=== PATIENT | female | born 1975 ===

== ENCOUNTER 2018-09-17 10:13 | Day surgery (SDC) | payer SELFPAY ==
[2018-09-16 15:02] VITALS: BMI 32.4
[2018-09-17] MEDS ORDERED: EPINEPHrine/PF 1 MG/1 ML (1:1,000) AMPULE ONE (13:26)
[2018-09-17] MEDS ORDERED: LIDOCAINE HCL 2% (20ML MULTI-DOSE VIAL) NR ONE (13:27)
[2018-09-17] MEDS ORDERED: SODIUM BICARBONATE 8.4% - 50 ML ONE (13:30)
[2018-09-17] MEDS ORDERED: MIDAZOLAM HCL 2 MG/2 ML SINGLE DOSE VIAL ONE (13:49)
[2018-09-17] MEDS ORDERED: PROPOFOL 20 ML ONE ×2 (13:53→16:07)
[2018-09-17] MEDS ORDERED: fentaNYL CITRATE 250 MCG/5 ML VIAL ONE (13:53)
[2018-09-17] MEDS ORDERED: ROCURONIUM BROMIDE 50 MG/5 ML VIAL ONE (13:54)
[2018-09-17] MEDS ORDERED: DEXAMETHASONE SOD PHOSPHATE 4 MG/1 ML VIAL ONE (14:02)
[2018-09-17] MEDS ORDERED: BUPIVACAINE HCL/PF 0.25% (2.5MG/ML) 10 ML VIAL ONE (14:07)
[2018-09-17] MEDS ORDERED: ceFAZolin SODIUM 1 GM VIAL IVPB ONE (14:10)
[2018-09-17] MEDS ORDERED: ONDANSETRON 4 MG/2 ML VIAL IVPUSH PRN (17:17)
[2018-09-17] MEDS ORDERED: ACETAMINOPHEN 325 MG TABLET (FP) PO PRN (17:17)
[2018-09-17] MEDS: MEPERIDINE HCL CARPU-JECT 25 MG/1 ML DISP.SYRIN IVPUSH PRN ×2 (17:30→17:40)
[2018-09-17] MEDS ORDERED: LACTATED RINGERS SOLUTION 1,000 ML IV SCH (17:30)
[2018-09-17] MEDS ORDERED: ONDANSETRON 4 MG/2 ML VIAL ONE (18:02)
[2018-09-17] MEDS ORDERED: ACETAMINOPHEN INJECTION 100 ML IVPB ONE (18:13)
[2018-09-17] MEDS ORDERED: ACETAMINOPHEN 1000 MG/100 ML VIAL (NON FORMULARY) IVPB ONE (18:15)
[2018-09-17 19:43] VITALS: BP 112/76; PULSE 77; TEMP 97.9
--- NOTE | 2018-09-20 17:35 | OP ---
DATE OF OPERATION: 09/17/2018 PREOPERATIVE DIAGNOSES: 1. Lipodystrophy of abdomen, flanks, and bilateral buttocks. 2. 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 POSTOPERATIVE DIAGNOSES: 1. Revision of umbilical and lower abdominal scars. 2. Power-assisted liposuction of abdomen, bilateral flanks, and back, with autologous fat transfer to bilateral buttocks. ATTENDING SURGEON: Markel Hernandez MD ANESTHESIA: General endotracheal. ESTIMATED BLOOD LOSS: 20 mL. SPECIMEN: None. DRAINS: None. COMPLICATIONS: None. CONDITION: Stable to recovery room, extubated. INDICATIONS: The patient is a 42-year-old female who underwent an abdominoplasty in the [facility] in 2017. She now presents with hypertrophic scarring of her umbilicus as well as her lower abdomen, with areas of tethered scar consistent with secondary healing. In addition, the patient has lipodystrophy of her abdomen, flanks, and back and desires correction of lipodystrophy of her bilateral buttocks, with a lateral depression deformity. The risks, benefits, and alternatives of the surgery were discussed with the patient in detail, with the aid of a supervisor steel division, and all questions were answered. The risks include but are not limited to bleeding; infection; pain; need for revision or further surgery; recurrence of hypertrophic scarring; damage to neighboring structures including nerves, arteries, veins, and tendons; residual lipodystrophy and/or buttock deformity. The patient understands these risks and has elected to proceed with surgery. PROCEDURE: After proper identification and marking the patient in the preoperative holding area, the patient was transported to the operating room, placed supine on the table, and noninvasive anesthesia monitors were applied. Intravenous access was established. General anesthesia was administered and the patient was intubated without difficulty. SCD boots were applied to bilateral lower extremities. Intravenous antibiotics were then given. The patient's abdomen as well as bilateral flanks were then prepped and draped in the usual sterile fashion. After a timeout was performed, local anesthesia consisting of a solution of 0.25% Marcaine mixed in a 1:1 fashion with 1% lidocaine with 1:100,000 epinephrine was injected into the planned incisions of the umbilicus and lower abdomen. A total of 20 mL was given. At this point, the hypertrophic scar was elliptically excised from the lower abdomen. Electrocautery was used to carry this down to the abdominal wall fascia. The superior abdominal skin flap was then partially elevated until adequate mobilization was achieved. At this point, standard tumescent solution was infiltrated into the subcutaneous tissue of the abdomen and bilateral flanks. Once this was given time to take effect, the 5-mm cannula was loaded onto the [employer] system and used to harvest lipoaspirate from the abdomen and bilateral flanks. The lipoaspirate was collected into the [employer] System for later processing. Once an adequate amount of lipoaspirate had been collected, the lower abdominal closure was performed in layers. A 2-0 Vicryl suture was placed in interrupted buried fashion in José Miguel's fascia followed by a 2-0 V-Loc suture in a simple running fashion to reapproximate José Miguel's fascia. Next, a 3-0 V-Loc suture was placed in a running deep dermal fashion to reapproximate the dermal edges. Finally, a 4-0 Monocryl suture was run in a subcuticular fashion in order to complete the low abdominal closure line. Prineo tape was applied to the lower abdominal closure line. Attention at this point was turned to the umbilicus. The umbilicus was circumferentially incised with a number 15 blade just outside the hypertrophic scar. The hypertrophic scar was then completely excised with a curved iris scissors. Next, the umbilicus was inset using a 3-0 PDS in an interrupted buried 3-point deep dermal fashion with tacking down to the abdominal wall fascia at the 12, 3, 6, and 9 o'clock positions. Next, a 3-0 PDS was placed in a buried deep dermal fashion followed by a 4-0 Monocryl in a running subcuticular fashion. Xeroform followed by a BioPatch and Tegaderm were applied to the umbilical closure line. At this point, the drapes were taken down and the patient was carefully flipped into a prone position, with care taken to pad all pressure points. At this point, incisions at the top of the buttocks crease as well as along bilateral lower buttocks creases and a horizontal incision in the bra line at the midline of the back were designed. These were infiltrated with a similar local anesthetic solution that had been used earlier and an additional 5 mL was given. A number 15 blade was used to make all incisions, and standard tumescent solution was infiltrated into the subcutaneous tissue of the back and posterior flanks. The [employer] system was then used to harvest additional lipoaspirate from the back and posterior flanks and this was again collected into the [employer] System. It should be noted that the previously-harvested lipoaspirate had been processed and the isolated adipocytes loaded into 20 mL syringes while the patient was being flipped into a prone position. The additional lipoaspirate was again processed, and the additional adipocytes loaded into 20 mL syringes in preparation for autologous fat transfer. The access incision in the bra line was closed with a 3-0 PDS in a buried deep dermal fashion, followed by 5-0 plain gut in a simple interrupted fashion. The isolated adipocytes were then layered into bilateral buttocks at the site of the preoperative marking, where there was noted to be bilateral buttocks lateral deformities. These adipocytes were layered in a modified Rosales technique, with care taken to layer them from multiple directions. A total of 220 mL were layered into each buttocks, and there was noted to be significant improvement in the patient's preoperative deformity. The access incisions were closed with 5-0 plain gut in a simple interrupted fashion and all incisions were dressed with Mastisol and Steri-Strips followed by eye patches and Tegaderms. The patient at this point was carefully flipped back into a supine position. A compression garment was then placed and the patient at this point was slowly awakened and extubated without incident and transported to recovery room in stable condition. MARKEL HERNANDEZ M.D. [id number]
== END 2018-09-17 19:35 | disposition home or self-care (01) ==
LOC: JASU-SURG 10:13
PROVIDERS: ATTEND Plastic Surgery
PROC: 0J073ZZ Alteration of Back Subcutaneous Tissue and Fascia, Percutaneous Approach (ICD-10-PCS; 2018-09-17)
PROC: 0J083ZZ Alteration of Abdomen Subcutaneous Tissue and Fascia, Percutaneous Approach (ICD-10-PCS; principal; 2018-09-17 11:30)
DX: Z41.1 Encounter for cosmetic surgery (principal); L90.5 Scar conditions and fibrosis of skin
CPT/HCPCS: 84703; 94760; J0131